=== PATIENT | female | born 1995 | race Caucasian/White ===

== ENCOUNTER → 2019-07-31 10:54 | Outpatient (BNVA) | payer OTHER, SELFPAY | PROVIDERS: PCP Family Medicine; Visit Provider Psychiatry & Neurology Psychiatry | DX: F60.3 Borderline personality disorder (principal); F43.12 Post-traumatic stress disorder, chronic; F33.1 Major depressive disorder, recurrent, moderate; F50.00 Anorexia nervosa, unspecified | CPT/HCPCS: 99204 ==

== ENCOUNTER 2019-10-28 13:17 | Inpatient (IN) | payer SELFPAY ==
[2019-10-28 13:25] VITALS: BP 110/71; PULSE 86; RESP 16; TEMP 36.9; O2SAT 97; BMI 26.1
--- NOTE | 2019-10-28 13:36 | W.ED.PSYCH ---
HPI - Psych General: Chief Complaint: Psychiatric Symptoms Stated Complaint: SI Time Seen by Provider: 10/28/19 13:36 Source: patient Mode of arrival: ambulatory Limitations: no limitations History of Present Illness: HPI Narrative: Patient is a 24-year-old female presents to ED today with complaint of suicidal ideations over the past 2 days. Patient tells me she has purposely avoided going home because she knows that there are knives and pills and alcohol at home that she could use to harm herself or overdose. Patient tells me in 2016 she had a suicide attempt by overdosing on pills. She tells me she has had a lot of stressors including losing her job because of COVID and her fianc? calling off their wedding. Patient is not having homicidal ideations. She does admit to seeing people and occasionally hearing voices. Patient denies drug use. She admits to occasional alcohol use. Her only medication is hydroxyzine at this time. MD complaint: suicidal ideation and feels depressed Duration: constant History of same: Yes Relieving factors: none Context: significant life stressor Associated psychiatric symptoms: depression and suicidal ideation Associated symptoms: Reports auditory hallucinations, visual hallucinations, depression, homicidal ideation and suicidal ideation If self harm: admits thoughts of self harm and has plan Review of Systems Const: Denies: fever(s) or chills Card: Denies: chest pain, palpitations, lightheadedness or syncope Resp: Denies: dyspnea GI: Denies: abdominal pain, nausea, vomiting or diarrhea Skin/Breast: Denies: rash Neuro: Denies: headache(s) Psych: Reports: anxiety, depression, visual hallucinations, auditory hallucinations, suicidal ideation and homicidal ideation [facility] ED PFSH: Social History (Updated 07/31/19 @ 11:15 by Corbin Kidd LPN) Smoking and tobacco status: former smoker Quit status (tobacco): has quit using tobacco Second hand smoke exposure: Yes Smoking risk assessment/counseling performed?: No Female Reproductive History: Date of last menstrual period: 10/21/19 Physical Exam Const: COMMON NORMALS: no acute distress, patient oriented x3, alert and well nourished GENERAL APPEARANCE: cooperative and well kempt Resp: COMMON NORMALS: normal respiratory effort and clear to auscultation bilaterally AUSCULTATION: clear to auscultation bilaterally Cardio: COMMON NORMALS: regular rate and regular rhythm RATE: regular rate RHYTHM: regular rhythm Neuro: COMMON NORMALS: patient oriented x3 SENSORIUM/ORIENTATION: Yes alert Psych: COMMON NORMALS: mental status grossly normal, Normal thought process present, cooperative, speech normal and activity/motor behavior normal APPEARANCE: Yes grossly normal and Yes well kempt ATTITUDE: Yes calm ACTIVITY/MOTOR BEHAVIOR: Yes appropriate eye contact and No psychomotor agitation SPEECH: Yes normal speech MOOD & AFFECT: Yes depressed mood and Yes Flat affect present THOUGHT PROCESS: Normal thought process present THOUGHT CONTENT: Yes Normal thought content present ATTENTION/CONCENTRATION: Yes attention grossly intact and Yes concentration grossly intact MEMORY/COGNITION: Yes memory grossly intact and Yes cognition grossly intact INSIGHT: Good insight present (Psych) JUDGEMENT: Good judgement present (Psych) MDM - Psych Lab Data: Labs: Lab Results 10/28/19 10/28/19 10/28/19 Range/Units 13:50 14:35 14:35 WBC 8.5 (4.0-10.0) 10^3/ uL RBC 4.76 (4.1-5.3) 10^6/u L Hgb 14.1 (11.5-15.3) g/dL Hct 43.0 (37.0-47.0) % MCV 90.3 (81-99) fL MCH 29.6 (28.0-34.0) pg MCHC 32.8 (30.0-36.0) g/dL RDW 12.4 (12.1-15.1) % Plt Count 278 (130-400) 10^3/c mm MPV 11.0 H (7.4-10.4) fL Neut % (Auto) 73.5 % Lymph % (Auto) 17.0 % [place] % (Auto) 6.3 % Eos % (Auto) 2.4 % Baso % (Auto) 0.6 % Neut # (Auto) 6.23 (1.8-7.7) 10^3/u L Lymph # (Auto) 1.4 (0.8-4.8) 10^3/u L [place] # (Auto) 0.5 (0.2-0.9) 10^3/u L Eos # (Auto) 0.2 (0.0-0.8) 10^3/u L Baso # (Auto) 0.1 (0.0-0.1) 10^3/u L Nucleated RBC % (a uto) 0 % Nucleated RBCs # 0.0 /100WBC Sodium 135 L (136-145) mmol/L Potassium 3.9 (3.5-5.1) mmol/L Chloride 103 (98-107) mmol/L Carbon Dioxide 23 (22-29) mmol/L Anion Gap 12.9 (5-19) BUN 9 (6-20) mg/dL Creatinine 0.6 (0.5-0.9) mg/dL GFR Calculation 125.0 (90-130) mL/min Glucose 84 (65-115) mg/dL Calculated Osmolal ity 275 L (285-295) mOsm/k g Calcium 9.2 (8.5-10.5) mg/dL Total Bilirubin 0.3 (0.15-1.2) mg/dL AST 17 (0-32) U/L ALT 11 (0-33) U/L Alkaline Phosphata se 106 H (35-105) IU/L Total Protein 7.5 (6.6-8.7) g/dL Albumin 4.7 (3.5-5.2) g/dL Globulin 2.8 (1.3-4.6) g/dL HCG, Qual (Negative) Salicylates < 0.3 L (3-10) mg/dL Urine Opiates Scre en Negative (Negative) ng/mL Acetaminophen < 5.0 L (10-30) ug/mL Ur Barbiturates Sc reen Negative (Negative) ng/mL Ur Phencyclidine S crn Negative (Negative) ng/mL Ur Amphetamines Sc reen Negative (Negative) ng/mL U Benzodiazepines Scrn Negative (Negative) ng/mL Urine Cocaine Scre en Negative (Negative) ng/mL U Marijuana (THC) Screen Negative (Negative) ng/mL Ethyl Alcohol < 10 (0-10) mg/dL 10/28/19 Range/Units 14:35 WBC (4.0-10.0) 10^3/ uL RBC (4.1-5.3) 10^6/u L Hgb (11.5-15.3) g/dL Hct (37.0-47.0) % MCV (81-99) fL MCH (28.0-34.0) pg MCHC (30.0-36.0) g/dL RDW (12.1-15.1) % Plt Count (130-400) 10^3/c mm MPV (7.4-10.4) fL Neut % (Auto) % Lymph % (Auto) % [place] % (Auto) % Eos % (Auto) % Baso % (Auto) % Neut # (Auto) (1.8-7.7) 10^3/u L Lymph # (Auto) (0.8-4.8) 10^3/u L [place] # (Auto) (0.2-0.9) 10^3/u L Eos # (Auto) (0.0-0.8) 10^3/u L Baso # (Auto) (0.0-0.1) 10^3/u L Nucleated RBC % (a uto) % Nucleated RBCs # /100WBC Sodium (136-145) mmol/L Potassium (3.5-5.1) mmol/L Chloride (98-107) mmol/L Carbon Dioxide (22-29) mmol/L Anion Gap (5-19) BUN (6-20) mg/dL Creatinine (0.5-0.9) mg/dL GFR Calculation (90-130) mL/min Glucose (65-115) mg/dL Calculated Osmolal ity (285-295) mOsm/k g Calcium (8.5-10.5) mg/dL Total Bilirubin (0.15-1.2) mg/dL AST (0-32) U/L ALT (0-33) U/L Alkaline Phosphata se (35-105) IU/L Total Protein (6.6-8.7) g/dL Albumin (3.5-5.2) g/dL Globulin (1.3-4.6) g/dL HCG, Qual Negative (Negative) Salicylates (3-10) mg/dL Urine Opiates Scre en (Negative) ng/mL Acetaminophen (10-30) ug/mL Ur Barbiturates Sc reen (Negative) ng/mL Ur Phencyclidine S crn (Negative) ng/mL Ur Amphetamines Sc reen (Negative) ng/mL U Benzodiazepines Scrn (Negative) ng/mL Urine Cocaine Scre en (Negative) ng/mL U Marijuana (THC) Screen (Negative) ng/mL Ethyl Alcohol (0-10) mg/dL Discharge Plan Discharge Patient Disposition: Admitted As Inpatient Admit Provider: Marshal Wilder Clinical Impression: Suicidal ideation Condition: Stable Referrals: Gomez Keen MD [Primary Care Provider] - Discharge Date/Time: 10/28/19 17:34 Coding Level of Care Code ED Budget Technician for Chg Fwd Exam Expanded Problem Focused
[2019-10-28 14:18] LABS: Amphetamines Screen Urine Negative (Negative); Barbiturates Screen Urine Negative (Negative); Benzodiazepines Screen Urine Negative (Negative); Cocaine Screen Urine Negative (Negative); Opiate Screen Urine Negative (Negative); PCP Screen Urine Negative (Negative); THC Screen Urine Negative (Negative)
[2019-10-28 14:45] LABS: Basophils # 0.1 10^3/uL (0.0-0.1); Basophils % 0.6 %; Eosinophils # 0.2 10^3/uL (0.0-0.8); Eosinophils % 2.4 %; Hemoglobin 14.1 g/dL (11.5-15.3); Lymphocytes # 1.4 10^3/uL (0.8-4.8); Mean Corpuscular HGB Conc 32.8 g/dL (30.0-36.0); Mean Corpuscular Hemoglobin 29.6 pg (28.0-34.0); Mean Corpuscular Volume 90.3 fL (81-99); Monocytes # 0.5 10^3/uL (0.2-0.9); Monocytes % 6.3 %; Neutrophils # 6.23 10^3/uL (1.8-7.7); Neutrophils % 73.5 %; Nucleated Red Blood Cells % 0 %; Platelet Count 278 10^3/cmm (130-400); Red Blood Count 4.76 10^6/uL (4.1-5.3); Red Cell Distribution Width 12.4 % (12.1-15.1); White Blood Count 8.5 10^3/uL (4.0-10.0)
[2019-10-28 15:16] LABS: Alanine Aminotransferase 11 U/L (0-33); Albumin Level 4.7 g/dL (3.5-5.2); Alkaline Phosphatase 106 IU/L (35-105); Anion Gap 12.9 (5-19); Aspartate Amino Transferase 17 U/L (0-32); Blood Urea Nitrogen 9 mg/dL (6-20); Calcium 9.2 mg/dL (8.5-10.5); Carbon Dioxide 23 mmol/L (22-29); Chloride 103 mmol/L (98-107); Globulin 2.8 g/dL (1.3-4.6); Glucose 84 mg/dL (65-115); Osmolality Calculated 275 mOsm/kg (285-295); Potassium 3.9 mmol/L (3.5-5.1); Sodium 135 mmol/L (136-145); Total Bilirubin 0.3 mg/dL (0.15-1.2); Total Protein 7.5 g/dL (6.6-8.7)
[2019-10-28 15:29] LABS: HCG, Serum Qual Negative (Negative)
[2019-10-28 15:34] LABS: Acetaminophen < 5.0 ug/mL (10-30); Alcohol Level < 10 mg/dL (0-10); Salicylate < 0.3 mg/dL (3-10)
[2019-10-28 17:16] VITALS: BP 103/68; PULSE 74; RESP 16; O2SAT 98
[2019-10-28 17:46] VITALS: BP 110/76; PULSE 62; RESP 18; TEMP 37.2; O2SAT 95
[2019-10-28] MEDS: trazodone 50 mg Tablet PO (20:29)
[2019-10-28] MEDS: OLANZapine 5 mg ODT PO (20:30)
[2019-10-28] MEDS: hyDROXYzine 25 mg Capsule 50 MG PO (20:30)
[2019-10-28 20:54] VITALS: BP 98/64; PULSE 72; RESP 14; TEMP 36.7; O2SAT 99
[2019-10-29 06:00] VITALS: BP 99/59; PULSE 75; RESP 15; TEMP 36.6; O2SAT 96
[2019-10-29 14:00] VITALS: BP 107/69; PULSE 75; RESP 20; TEMP 37.1; O2SAT 99
--- NOTE | 2019-10-29 14:44 | P.HP_ITS ---
Providers/Chief Complaint Admitting Physician: Marshal Wilder MD Primary Care Provider: Gomez Keen MD Chief Complaint: SI HPI NPU History of Present Illness Chief complaint: Everything sets me off no matter what I do. History of present illness:Hazel De León is a 24 year old female who was admitted to the psychiatric unit because of intractable anxiety. The patient has her own peculiar use of mental health terms which is not entirely accurate. While she is suffering from anxiety, she also describes a florid symptoms of depression. She feels hopeless and overwhelmed. She is irritable. She has no hedonic capacity and engages in no enjoyable activities. She is pessimistic about the future. She does not enjoy caring for her 1-year-old child and does not appear to be bonding with it. She has passive suicidal ideation on a regular basis but no intent or plan. She has an alleged history of suicide attempts by overdose and walking in front of a truck. However these are not confirmed. She denies auditory hallucinations. She claims to have visual hallucinations but her reality testing remains intact. She says that there are times when she has thoughts that she cannot trust that her reality testing remains good. I do not enjoy anything. She denies any history consistent with maryan. She says that she cannot remember the last time that she was not depressed. There is no substance abuse history and her urine drug screen was negative on admission. Laboratory Tests 10/28/19 10/28/19 13:50 14:35 Urine Opiates Screen Negative Ur Barbiturates Screen Negative Ur Phencyclidine Scrn Negative Ur Amphetamines Screen Negative U Benzodiazepines Scrn Negative Urine Cocaine Screen Negative U Marijuana (THC) Screen Negative Ethyl Alcohol < 10 She is currently taking hydroxyzine. She reports that in the past, this medication has been very helpful in providing her a good night sleep. When she sleeps well at night, during the day, she has better coping skills and better frustration tolerance. However the hydroxyzine is so sedating that she is concerned that she will not wake up if her infant needs her in the middle of the night. She is taking smaller doses with some benefit during the day. She is willing to continue taking this medication. However it does not negate the fact that she is clinically depressed even while taking it. Patient appears to have a vaguely chaotic childhood growing up. She was reluctant to explore those. She did not describe the symptoms of posttraumatic stress disorder on questioning. Mental health history: No history of hospitalizations. She feels as though there are no antidepressants that will help her and that all the ones she has tried have failed. However by her report, she is only tried 3 antidepressants and really has only had one reasonable medication trial. She said there was a medication that made her extremely suicidal . She cannot remember its name. However she did take it for 1 month. She took Paxil and Wellbutrin and had an anaphylactic response within the first week of taking. She was given buspirone and did not like how I felt on it. She could be no more specific. She is cu rrently active in individual therapy at the [facility]. Family psychiatric history is positive for multiple family members who have been treated for mental health problems. Most specifically, her mother has been treated for depression. She has been given almost every medication that is known. Her mother has not tolerated any of them. One time she was on a cocktail of 5 different medications. The patient describes her relationship with her mother as volatile and unsupportive. She says both parents were alcoholics and a number of people in her family were as well. Social history: The patient is somewhat vague about her social history. She is currently living with her 1-year-old and the infant's father. They have been discussing getting . However that appears to be a source of conflict and the future is uncertain. She had been working in a factory prior to childbirth. Since then, she does nothing but take care of this infant. She is socially isolated. Her closest emotional support lives in [place] and she hardly ever gets to see them. She grew up in [place]. She does not talk about her family easily but apparently it was quite chaotic. She has almost no contact with her biological father unless she initiates it. She says that she is actually closer to her father's girlfriend. Her mother has struggled with mental health problems. Please read the family psychiatric history. Though the patient wound up in [place] from [place] primarily due to mother's presence, mother appears to have a significant issues with mental illness and poor judgment. The patient did not describe a history of trauma that would be consistent with posttraumatic stress disorder. Legal history: She denies a history of arrests or conviction. Past medical history: See emergency room notes Review of Systems Narrative: Review of Systems Constitutional: Complains of: Fatigue Eyes: Complains of: No eye symptoms ENT/Mouth: Complains of: No ENTM symptoms Cardiovascular: Complains of: No cardiac symptoms Respiratory: Complains of: No respiratory symptoms GI: Complains of: No GI symptoms Neuro: Complains of: No neuro symptoms Musculoskeletal: Complains of: No musculoskeletal symptoms Skin: Complains of: No skin symptoms Hematologic/Lymphatic: Complains of: No hematologic/lymphatic symptoms Endocrine: Complains of: No endocrine symptoms : Complains of: No symptoms Psych: Complains of: Depression, Suicide ideation Meds NPU Home Medications Medication Instructions Recorded Confirmed Last Taken Type hydroxyzine HCl 25 mg PO BEDTIME PRN 10/28/19 10/28/19 Unknown History levalbuterol tartrate [Xopenex HFA] 2 inh INHALATION Q6H 10/28/19 10/28/19 Unknown History Allergies Allergy/AdvReac Type Severity Reaction Status Date / Time budesonide [From Symbicort] Allergy Severe Can't Verified 07/31/19 11:11 breathe, Asthma attack bupropion [From Wellbutrin] Allergy Severe Anaphylaxis Verified 07/31/19 11:11 formoterol [From Symbicort] Allergy Severe Can't Verified 07/31/19 11:11 breathe, Asthma attack methylphenidate Allergy Severe Light a Verified 07/31/19 11:11 [From Ritalin] hole in stomach paroxetine [From Paxil] Allergy Severe anaphylaxix Verified 07/31/19 11:11 latex Allergy Intermediate Blisters Verified 07/31/19 11:11 PFS NPU PFSH: Social History (Updated 07/31/19 @ 11:15 by Corbin Kidd LPN) Smoking and tobacco status: former smoker Quit status (tobacco): has quit using tobacco Second hand smoke exposure: Yes Smoking risk assessment/counseling performed?: No Mental Status Exam MSE Comments: Mental Status Exam: The patient is encountered to sleep in the afternoon in her bed. She is easily aroused by verbal stimuli. Eye contact is good. She speaks in a very soft voice which is frequently difficult under stand. She is believed to be a reliable informant as information provided is consistent with that in her chart and internally consistent. Appearance: hygiene is fair; no gross neurological deficits., gait is unremarkable; AIMS=0 Speech: Speech is of normal rate and rhythm and easily understood. Thought processes: Thought processes are abstract. Judgment is adequate for safety. Associations: intact Psychotic processes: There is no indication of guarding or paranoia. There is no attention to the internal stimuli. Auditory and visual hallucinations are denied. Judgment: Insight is fair. Problem solving skills are adequate for safety. Orientation: The patient is oriented to person, place time and situation. Memory: no deficits noted in immediate, intermediate, or remote spheres. Attention: The patient is alert and interpersonally engaged. Language: Verbalizations are coherent. Fund of knowledge: Fund of knowledge is adequate. Affect/Mood: Affect is consistent with a depressed mood. pt denies suicidal ideation Affective range flat Psychosis: perception unimpaired except through cognitive distortion; reality testing intact. Vitals/I&O/Wt Last Vital Signs Temp 97.8 F 10/29/19 06:00 Pulse 75 10/29/19 06:00 Resp 15 10/29/19 06:00 BP 99/59 10/29/19 06:00 Pulse Ox 96 10/29/19 06:00 Weight last 48 hrs Weight 71.214 kg Data NPU : 10/28/19 14:35 10/28/19 14:35 A&P Additional A&P Information Diagnoses: Major depression?single episode, severe, without psychotic features Assessment: Hazel meets criteria for clinical depression. She was educated with regard to the signs and symptoms of clinical depression and target symptoms that could be expected to improve with effective medication treatment. She was educated also with regard to aspects of her mental health which would not improve with medication alone. She was strongly advised to continue par ticipating in individual psychotherapy as there appears to be an element of necessity to assume the patient role to support her self-esteem. Treatment plan: Due to the psychiatric conditions and treatment listed in the Assessment and Plan - the patient requires continued hospitalization. Will provide a safe and therapeutic environment for patient.. Will continue inpatient treatment to allow for medication adjustment and monitoring. Will continue q15 min safety checks. Patient will be admitted to the adult psychiatric unit and entered into the full array of individual and group therapies as part of that unit protocol. They will be provided 24-hour access to trained psychiatric nursing care and monitoring. Potential benefits and side effects of medications were discussed as well as the time course of expected response to medication changes. Hazel meets criteria for clinical depression. She was educated with regard to the signs and symptoms of clinical depression and target symptoms that could be expected to improve with effective medication treatment. She was educated also with regard to aspects of her mental health which would not improve with medication alone. She was strongly advised to continue participating in individual psychotherapy as there appears to be an element of necessity to assume the patient role to support her self-esteem. Plan: We will initiate L exapro at 5 mg daily. She was extremely sedated today because for some reason she was given hydroxyzine, trazodone, and Zyprexa all at bedtime. Trazodone would be a good adjunct of medication for sleep if it provides benefit without being too sedating. The as needed hydroxyzine dose was reduced to 10 mg from 50 mg as this is her usual as needed anxiety dosage. Zyprexa at bedtime was discontinued. She will continue trazodone 50 mg at bedtime for insomnia. Monitor patient's mood, sleep, appetite, and behavior closely. Encourage patient to participate in individual and group therapeutic sessions on the yang. Estimated length of stay 5 days The expected benefits and potential side effects of patient's psychiatric medications were discussed with the patient. The patient understands and consents to treatment.CRITERIA FOR DISCHARGE: stable on medications and no longer an imminent risk Involuntary Hold Information 96 Hour Hold: 96 Hour Involuntary Admission: No Attestations NPU Medical Necessity Statement*: Patient will remain in hospital another 4-5 nights before assessment of efficacy and tolerability of medication. Coding Level of Care Code Acute Wound Specialist for Lor Scott
[2019-10-29] MEDS: escitalopram 10 mg Tablet 5 MG PO (15:42)
[2019-10-29 20:57] VITALS: BP 104/68; PULSE 81; RESP 17; TEMP 37; O2SAT 96
[2019-10-29] MEDS: trazodone 50 mg Tablet PO (21:52)
[2019-10-30] VITALS (7 sets, daily range): BP systolic 108–121; BP diastolic 70–80; PULSE 75–83; RESP 15–18; TEMP 37.1–37.6; O2SAT 97–98
[2019-10-30] MEDS: escitalopram 10 mg Tablet 5 MG PO (08:21)
--- NOTE | 2019-10-30 13:18 | P.PN_ITS ---
Subjective NPU Subjective: Interval history: Patient had many questions regarding the medication, benefits, and side effects. All questions were appropriate. She reported that she did not sleep well last night but does report that she received medication last night. That is not supported in the chart. Mental Status Exam MSE Comments: Mental Status Exam: Eye contact is good. She speaks in a very soft voice which is frequently difficult under stand. She is believed to be a reliable informant as information provided is consistent with that in her chart and internally consistent. Appearance: hygiene is fair; no gross neurological deficits., gait is unremarkable; AIMS=0 Speech: Speech is of normal rate and rhythm and easily understood. Thought processes: Thought processes are abstract. Judgment is adequate for safety. Associations: intact Psychotic processes: There is no indication of guarding or paranoia. There is no attention to the internal stimuli. Auditory and visual hallucinations are denied. Judgment: Insight is fair. Problem solving skills are adequate for safety. Orientation: The patient is oriented to person, place time and situation. Memory: no deficits noted in immediate, intermediate, or remote spheres. Attention: The patient is alert and interpersonally engaged. Language: Verbalizations are coherent. Fund of knowledge: Fund of knowledge is adequate. Affect/Mood: Affect is consistent with a depressed mood. pt denies suicidal ideation Affective range good Psychosis: perception unimpaired except through cognitive distortion; reality testing intact. Vitals/I&O/Wt Last Vital Signs Temp 98.7 F 10/30/19 06:00 Pulse 76 10/30/19 06:00 Resp 15 10/30/19 06:00 BP 108/73 10/30/19 06:00 Pulse Ox 97 10/30/19 06:00 Weight last 48 hrs Weight 71.214 kg Data NPU : 10/28/19 14:35 10/28/19 14:35 A&P Additional A&P Information Diagnoses: Major depression?single episode, severe, without psychotic features Assessment: Hazel meets criteria for clinical depression. She was educated with regard to the signs and symptoms of clinical depression and target symptoms that could be expected to improve with effective medication treatment. She was educated also with regard to aspects of her mental health which would not improve with medication alone. She was strongly advised to continue participating in individual psychotherapy as there appears to be an element of necessity to assume the patient role to support her self-esteem. Treatment plan: Due to the psychiatric conditions and treatment listed in the Assessment and Plan - the patient requires continued hospitalization. Will provide a safe and therapeutic environment for patient.. Will continue inpatient treatment to allow for medication adjustment and monitoring. Will continue q15 min safety checks. Patient will be admitted to the adult psychiatric unit and entered into the full array of individual and group therapies as part of that unit protocol. They will be provided 24-hour access to trained psychiatric nursing care and monitoring. Potential benefits and side effects of medications were discussed as well as the time course of expected response to medication changes. Hazel meets criteria for clinical depression. She was educated with regard to the signs and symptoms of clinical depression and target symptoms that could be expected to improve with effective medication treatment. She was educated also with regard to aspects of her mental health which would not improve with medication alone. She was strongly advised to continue participating in individual psychotherapy as there appears to be an element of necessity to assume the patient role to support her self-esteem. Plan: We will initiate Lexapro at 5 mg daily. She was extremely sedated today because for some reason she was given hydroxyzine, trazodone, and Zyprexa all at bedtime. Trazodone would be a good adjunct of medication for sleep if it provides benefit without being too sedating. The as needed hydroxyzine dose was reduced to 10 mg from 50 mg as this is her usual as needed anxiety dosage. Zyprexa at bedtime was discontinued. She will continue trazodone 50 mg at bedtime for insomnia. Hospital day #3: Continue Lexapro 5 mg daily. Restart trazodone 50 mg at bedtime for insomnia. Patient was told to arrange a follow-up appointment with her therapist and psychiatrist prior to discharge. She is expecting to be discharged tomorrow. Monitor patient's mood, sleep, appetite, and behavior closely. Encourage patient to participate in individual and group therapeutic sessions on the yang. Estimated length of stay 5 days The expected benefits and potential side effects of patient's psychiatric medications were discussed with the patient. The patient understands and consents to treatment.CRITERIA FOR DISCHARGE: stable on medications and no longer an imminent risk Involuntary Hold Information 96 Hour Hold: 96 Hour Involuntary Admission: No Attestations NPU Medical Necessity Statement*: Patient will remain in the hospital another 2-4 nights for assessment of medication efficacy and tolerability. Coding Level of Care Code Acute Medical Assistant Float for Lor Scott
[2019-10-30] MEDS: trazodone 50 mg Tablet PO (21:10)
[2019-10-31 06:00] VITALS: BP 112/79; PULSE 81; RESP 17; TEMP 36.9; O2SAT 99
[2019-10-31] MEDS: escitalopram 10 mg Tablet 5 MG PO (08:16)
--- NOTE | 2019-10-31 08:47 | PM.NDC ---
Reason for Visit Reason for Visit: SI Brief History: [facility] complaint: Everything sets me off no matter what I do. History of present illness:Hazel De León is a 24 year old female who was admitted to the psychiatric unit because of intractable anxiety. The patient has her own peculiar use of mental health terms which is not entirely accurate. While she is suffering from anxiety, she also describes a florid symptoms of depression. She feels hopeless and overwhelmed. She is irritable. She has no hedonic capacity and engages in no enjoyable activities. She is pessimistic about the future. She does not enjoy caring for her 1-year-old child and does not appear to be bonding with it. She has passive suicidal ideation on a regular basis but no intent or plan. She has an alleged history of suicide attempts by overdose and walking in front of a truck. However these are not confirmed. She denies auditory hallucinations. She claims to have visual hallucinations but her reality testing remains intact. She says that there are times when she has thoughts that she cannot trust that her reality testing remains good. I do not enjoy anything. She denies any history consistent with maryan. She says that she cannot remember the last time that she was not depressed. There is no substance abuse history and her urine drug screen was negative on admission. Laboratory Tests 10/28/19 10/28/19 13:50 14:35 Urine Opiates Screen Negative Ur Barbiturates Screen Negative Ur Phencyclidine Scrn Negative Ur Amphetamines Screen Negative U Benzodiazepines Scrn Negative Urine Cocaine Screen Negative U Marijuana (THC) Screen Negative Ethyl Alcohol < 10 She is currently taking hydroxyzine. She reports that in the past, this medication has been very helpful in providing her a good night sleep. When she sleeps well at night, during the day, she has better coping skills and better frustration tolerance. However the hydroxyzine is so sedating that she is concerned that she will not wake up if her infant needs her in the middle of the night. She is taking smaller doses with some benefit during the day. She is willing to continue taking this medication. However it does not negate the fact that she is clinically depressed even while taking it. Patient appears to have a vaguely chaotic childhood growing up. She was reluctant to explore those. She did not describe the symptoms of posttraumatic stress disorder on questioning. Mental health history: No history of hospitalizations. She feels as though there are no antidepressants that will help her and that all the ones she has tried have failed. However by her report, she is only tried 3 antidepressants and really has only had one reasonable medication trial. She said there was a medication that made her extremely suicidal . She cannot remember its name. However she did take it for 1 month. She took Paxil and Wellbutrin and had an anaphylactic response within the first week of taking. She was given buspirone and did not like how I felt on it. She could be no more specific. She is currently active in individual therapy at the [facility] (formerly [facility]). Family psychiatric history is positive for multiple family members who have been treated for mental health problems. Most specifically, her mother has been treated for depression. She has been given almost every medication that is known. Her mother has not tolerated any of them. One time she was on a cocktail of 5 different medications. The patient describes her relationship with her mother as volatile and unsupportive. She says both parents were alcoholics and a number of people in her family were as well. Social history: The patient is somewhat vague about her social history. She is currently living with her 1-year-old infant and the infant's father. They have been discussing getting . However that appears to be a source of conflict and the future is uncertain. She had been working in a factory prior to childbirth. Since then, she does nothing but take care of this . She is socially isolated. Her closest emotional support lives in [place] and she hardly ever gets to see them. She grew up in [place]. She does not talk about her family easily but apparently it was quite chaotic. She has almost no contact with her biological father unless she initiates it. She says that she is actually closer to her father's girlfriend. Her mother has struggled with mental health problems. Please read the family psychiatric history. Though the patient wound up in [place] from [place] primarily due to mother's presence, mother appears to have a significant issues with mental illness and poor judgment. The patient did not describe a history of trauma that would be consistent with posttraumatic stress disorder. Hospital Course Hospital Course Patient will be admitted to the adult psychiatric unit and entered into the full array of individual and group therapies as part of that unit protocol. They will be provided 24-hour access to trained psychiatric nursing care and monitoring. Potential benefits and side effects of medications were discussed as well as the time course of expected response to medication changes. Hazel meets criteria for clinical depression. She was educated with regard to the signs and symptoms of clinical depression and target symptoms that could be expected to improve with effective medication treatment. She was educated also with regard to aspects of her mental health which would not improve with medication alone. She was strongly advised to continue participating in individual psychotherapy as there appears to be an element of necessity to assume the patient role to support her self-esteem. Plan: We will initiate Lexapro at 5 mg daily. She was extremely sedated today because for some reason she was given hydroxyzine, trazodone, and Zyprexa all at bedtime. Trazodone would be a good adjunct of medication for sleep if it provides benefit without being too sedating. The as needed hydroxyzine dose was reduced to 10 mg from 50 mg as this is her usual as needed anxiety dosage. Zyprexa at bedtime was discontinued. She will continue trazodone 50 mg at bedtime for insomnia. Hospital day #3: Continue Lexapro 5 mg daily. Restart trazodone 50 mg at bedtime for insomnia. Patient was told to arrange a follow-up appointment with her therapist and psychiatrist prior to discharge. She is expecting to be discharged tomorrow. Hospital day #4: Patient complained of having nightmares the night before after initiating trazodone. Much discussion went into exactly the nature of the problem as it was unclear whether this was insomnia or some sort of sleep disturbance. The plan below was eventually agreed upon. Imipramine was initiated 25 mg as needed as needed and insomnia. Involuntary Hold Information 96 Hour Hold: 96 Hour Involuntary Admission: No Mental Status Exam MSE Comments: Mental Status Exam: The patient is encountered to sleep in the afternoon in her bed. She is easily aroused by verbal stimuli. Eye contact is good. She speaks in a very soft voice which is frequently difficult under stand. She is believed to be a reliable informant as information provided is consistent with that in her chart and internally consistent. Appearance: hygiene is fair; no gross neurological deficits., gait is unremarkable; AIMS=0 Speech: Speech is of normal rate and rhythm and easily understood. Thought processes: Thought processes are abstract. Judgment is adequate for safety. Associations: intact Psychotic processes: There is no indication of guarding or paranoia. There is no attention to the internal stimuli. Auditory and visual hallucinations are denied. Judgment: Insight is fair. Problem solving skills are adequate for safety. Orientation: The patient is oriented to person, place time and situation. Memory: no deficits noted in immediate, intermediate, or remote spheres. Attention: The patient is alert and interpersonally engaged. Language: Verbalizations are coherent. Fund of knowledge: Fund of knowledge is adequate. Affect/Mood: Affect is consistent with a euthymic mood. pt denies suicidal ideation Affective range fair Psychosis: perception unimpaired except through cognitive distortion; reality testing intact. Discharge Data Vitals: Last Vital Signs Temp 98.4 F 10/31/19 06:00 Pulse 81 10/31/19 06:00 Resp 17 10/31/19 06:00 BP 112/79 10/31/19 06:00 Pulse Ox 99 10/31/19 06:00 Discharge Plan Discharge Patient Disposition: Home Condition: Stable Prescriptions: New imipramine HCl 25 mg Tablet 25 mg PO BEDTIME PRN (Reason: insomnia) Qty: 30 RF: 3 escitalopram oxalate 10 mg Tablet 5 mg PO DAILY Qty: 15 RF: 5 Continued levalbuterol tartrate [Xopenex HFA] 45 mcg/actuation Hfa Aerosol Inhaler 2 inh INHALATION Q6H RF: 0 Discontinued hydroxyzine HCl 25 mg tablet 25 mg PO BEDTIME PRN (Reason: sleep/anxiety) RF: 0 Discharge Orders: Discharge Order (Routine); Ordered 10/31/19 Ordered By: Marshal Wilder Referrals: Gomez Keen MD [Primary Care Provider] - Joan Coronel MS, PLP [Therapist] - 11/03/19 8:00 am Jm Clemens MD [Physician] - 11/17/19 10:30 am Discharge Attestations NPU Time Spent in Discharge Care*: greater than 30 min Coding Level of Care Code Acute Roller Painter for Lor Scott
[2019-10-31 09:06] VITALS: BP 112/79; PULSE 81; RESP 17; TEMP 36.9; O2SAT 99
== END 2019-10-31 11:57 | disposition home or self-care (01) | DRG 880 ==
LOC: ER 16:01 → NP 17:18
PROVIDERS: Physician Assistant; Admitting Provider Psychiatry & Neurology Psychiatry; PCP Family Medicine; Visit Provider Psychiatry & Neurology Psychiatry
DX: F41.9 Anxiety disorder, unspecified (principal); R45.851 Suicidal ideations; F32.9 Major depressive disorder, single episode, unspecified; Z91.5 Personal history of self-harm; Z87.891 Personal history of nicotine dependence
CPT/HCPCS: 12345; 36415; 80053; 80306; 80307; 84703; 85025; 94640; 99284

== ENCOUNTER 2020-01-07 15:07 | Inpatient (IN) | payer SELFPAY ==
[2020-01-07 15:36] VITALS: BP 127/85; PULSE 95; RESP 16; TEMP 36.8; O2SAT 99; BMI 26.8
--- NOTE | 2020-01-07 15:54 | ED_ITS ---
HPI - Psych General: Chief Complaint: Psychiatric Symptoms Stated Complaint: mhe Time Seen by Provider: 01/07/20 15:46 History of Present Illness: HPI Narrative: 24-year-old female presents emergency room complaining of suicidal ideation and planning she intends to cut herself she had thought to cut her wrist to kill herself. She has already cut her the anterior part of her right thigh earlier today she still has thin cloth stretch pants but there is no active bleeding coming through the clothing. She is unsure of her last tetanus shot. In October of this year she was hospitalized for suicidal ideation. MD complaint: suicidal ideation Onset (ago): hour(s) Duration: constant History of same: Yes Relieving factors: none Exacerbating factors: none Associated psychiatric symptoms: depression and suicidal ideation Associated symptoms: Reports depression and suicidal ideation; Deny auditory hallucinations, visual hallucinations, delusions, homicidal ideation or racing thoughts Treatments prior to arrival: none If self harm: admits thoughts of self harm, has plan and has acted on plan Details of plan: Plans to cut herself with a knife particularly her wrist she has already cut her right anterior thigh Review of Systems Const: Denies: fever(s), chills, body aches, change in appetite, fatigue or malaise ENMT: Denies: throat pain, ear or mastoid pain, nasal discharge or nasal congestion Card: Denies: chest pain, edema, dyspnea on exertion or orthopnea Resp: Denies: dyspnea, productive cough or non-productive cough GI: Denies: abdominal pain, nausea, vomiting, hematemesis, coffee ground emesis, diarrhea, constipation, bloating, hematochezia or melena : Denies: flank pain, difficulty voiding, dysuria, urinary frequency or urinary urgency Skin/Breast: Denies: rash or pruritus Psych: Reports: depression and suicidal ideation; Denies: visual hallucinations, auditory hallucinations or homicidal ideation [facility] PFSH: Medical History (Updated 01/09/20 @ 12:47 by Ritchie Frazier DO) Anorexia nervosa in remission Borderline personality disorder Major depressive disorder, recurrent, moderate Post-traumatic stress disorder, chronic Social History Smoking and tobacco status: former smoker Quit status (tobacco): has quit using tobacco Second hand smoke exposure: Yes Smoking risk assessment/counseling performed?: No Female Reproductive History: Date of last menstrual period: 01/07/20 Physical Exam Const: COMMON NORMALS: no acute distress GENERAL APPEARANCE: cooperative and comfortable ORIENTATION/CONSCIOUSNESS: Yes awake, Yes oriented to person, Yes oriented to place and Yes oriented to time Eye: COMMON NORMALS: Equal, round and reactive pupils present, EOMs intact bilaterally, conjunctivae normal and no scleral icterus CONJUNCTIVA: Yes conjunctivae normal PUPIL: Yes Equal, round and reactive pupils present Neck/C-Spine: COMMON NORMALS: no JVD Resp: COMMON NORMALS: normal respiratory effort, No retractions, No use of accessory muscles and clear to auscultation bilaterally AUSCULTATION: clear to auscultation bilaterally Cardio: COMMON NORMALS: no JVD, regular rate, regular rhythm and No murmurs present (Cardio) RATE: regular rate RHYTHM: regular rhythm GI: COMMON NORMALS: Soft to palpation and No hepatosplenomegaly present AUSCULTATION: Yes normoactive bowel sounds PALPATION: Yes Soft to palpation, No Tenderness to palpation present (GI), No Guarding due to palpation present (GI) and Yes No hepatosplenomegaly present Extremity: COMMON NORMALS: normal to inspection, capillary refill normal, no clubbing, cyanosis or edema, no calf tenderness and no pedal edema Neuro: SENSORIUM/ORIENTATION: Yes oriented to person, Yes oriented to place and Yes oriented to time Psych: THOUGHT CONTENT: No delusions Skin: COMMON NORMALS: no rashes or lesions noted GENERAL SKIN EXAM: no rashes or lesions noted MDM - Psych Lab Data: Labs: Lab Results 01/07/20 01/07/20 01/07/20 Range/Units 16:14 16:14 16:53 WBC 8.6 (4.0-10.0) 10^3/ uL RBC 4.83 (4.1-5.3) 10^6/u L Hgb 14.5 (11.5-15.3) g/dL Hct 44.1 (37.0-47.0) % MCV 91.3 (81-99) fL MCH 30.0 (28.0-34.0) pg MCHC 32.9 (30.0-36.0) g/dL RDW 12.7 (12.1-15.1) % Plt Count 280 (130-400) 10^3/c mm MPV 11.1 H (7.4-10.4) fL Neut % (Auto) 68.9 % Lymph % (Auto) 20.2 % [place] % (Auto) 6.7 % Eos % (Auto) 3.6 % Baso % (Auto) 0.5 % Neut # (Auto) 5.94 (1.8-7.7) 10^3/u L Lymph # (Auto) 1.7 (0.8-4.8) 10^3/u L [place] # (Auto) 0.6 (0.2-0.9) 10^3/u L Eos # (Auto) 0.3 (0.0-0.8) 10^3/u L Baso # (Auto) 0.0 (0.0-0.1) 10^3/u L Nucleated RBC % (a uto) 0 % Nucleated RBCs # 0.0 /100WBC Sodium (136-145) mmol/L Potassium (3.5-5.1) mmol/L Chloride (98-107) mmol/L Carbon Dioxide (22-29) mmol/L Anion Gap (5-19) BUN (6-20) mg/dL Creatinine (0.5-0.9) mg/dL GFR Calculation (90-130) mL/min Glucose (65-115) mg/dL Calculated Osmolal ity (285-295) mOsm/k g Calcium (8.5-10.5) mg/dL Total Bilirubin (0.15-1.2) mg/dL AST (0-32) U/L ALT (0-33) U/L Alkaline Phosphata se (35-105) IU/L Total Protein (6.6-8.7) g/dL Albumin (3.5-5.2) g/dL Globulin (1.3-4.6) g/dL Urine Color Yellow (Yellow) Urine Appearance Hazy A (CLEAR) Urine pH 6 (5-7) Ur Specific Gravit y 1.015 (1.005-1.030) Urine Protein Neg (Negative) Urine Glucose (UA) Norm (Normal) Urine Ketones Negative (Negative) Urine Blood 3+ H (Negative) Urine Nitrate Negative (Negative) Urine Bilirubin Neg (Negative) Urine Urobilinogen Norm (Negative) mg/dL Ur Leukocyte [place] Negative (Negative) Urine RBC >100 H (0-2) /hpf Urine WBC None (0-5) /hpf Ur Squamous Epith Cells 0-4 H (0-5) /hpf Amorphous Sediment Not Reportable Urine Bacteria Trace (NONE) /hpf Salicylates (3-10) mg/dL Urine Opiates Scre en Negative (Negative) ng/mL Acetaminophen (10-30) ug/mL Ur Barbiturates Sc reen Negative (Negative) ng/mL Ur Phencyclidine S crn Negative (Negative) ng/mL Ur Amphetamines Sc reen Negative (Negative) ng/mL U Benzodiazepines Scrn Negative (Negative) ng/mL Urine Cocaine Scre en Negative (Negative) ng/mL U Marijuana (THC) Screen Negative (Negative) ng/mL Ethyl Alcohol (0-10) mg/dL 10/15/20 Range/Units 16:53 WBC (4.0-10.0) 10^3/ uL RBC (4.1-5.3) 10^6/u L Hgb (11.5-15.3) g/dL Hct (37.0-47.0) % MCV (81-99) fL MCH (28.0-34.0) pg MCHC (30.0-36.0) g/dL RDW (12.1-15.1) % Plt Count (130-400) 10^3/c mm MPV (7.4-10.4) fL Neut % (Auto) % Lymph % (Auto) % [place] % (Auto) % Eos % (Auto) % Baso % (Auto) % Neut # (Auto) (1.8-7.7) 10^3/u L Lymph # (Auto) (0.8-4.8) 10^3/u L [place] # (Auto) (0.2-0.9) 10^3/u L Eos # (Auto) (0.0-0.8) 10^3/u L Baso # (Auto) (0.0-0.1) 10^3/u L Nucleated RBC % (a uto) % Nucleated RBCs # /100WBC Sodium 140 (136-145) mmol/L Potassium 3.9 (3.5-5.1) mmol/L Chloride 106 (98-107) mmol/L Carbon Dioxide 23 (22-29) mmol/L Anion Gap 14.9 (5-19) BUN 9 (6-20) mg/dL Creatinine 0.6 (0.5-0.9) mg/dL GFR Calculation 125.0 (90-130) mL/min Glucose 105 (65-115) mg/dL Calculated Osmolal ity 289 (285-295) mOsm/k g Calcium 9.7 (8.5-10.5) mg/dL Total Bilirubin 0.2 (0.15-1.2) mg/dL AST 22 (0-32) U/L ALT 20 (0-33) U/L Alkaline Phosphata se 123 H (35-105) IU/L Total Protein 7.6 (6.6-8.7) g/dL Albumin 4.6 (3.5-5.2) g/dL Globulin 3.0 (1.3-4.6) g/dL Urine Color (Yellow) Urine Appearance (CLEAR) Urine pH (5-7) Ur Specific Gravit y (1.005-1.030) Urine Protein (Negative) Urine Glucose (UA) (Normal) Urine Ketones (Negative) Urine Blood (Negative) Urine Nitrate (Negative) Urine Bilirubin (Negative) Urine Urobilinogen (Negative) mg/dL Ur Leukocyte [place] a[place] (Negative) Urine RBC (0-2) /hpf Urine WBC (0-5) /hpf Ur Squamous Epith Cells (0-5) /hpf Amorphous Sediment Urine Bacteria (NONE) /hpf Salicylates < 0.3 L (3-10) mg/dL Urine Opiates Scre en (Negative) ng/mL Acetaminophen < 5.0 L (10-30) ug/mL Ur Barbiturates Sc reen (Negative) ng/mL Ur Phencyclidine S crn (Negative) ng/mL Ur Amphetamines Sc reen (Negative) ng/mL U Benzodiazepines Scrn (Negative) ng/mL Urine Cocaine Scre en (Negative) ng/mL U Marijuana (THC) Screen (Negative) ng/mL Ethyl Alcohol < 10 (0-10) mg/dL Discharge Plan Discharge Patient Disposition: Admitted As Inpatient Admit Provider: Jose Hampton Clinical Impression: Suicidal ideation, Major depressive disorder, recurrent, moderate, Borderline personality disorder Condition: Stable Interventions: ED Discharge Assessment Last Done: 01/07/20 18:41 ED Charges Last Done: 01/07/20 18:41 Discharge Date/Time: 01/07/20 18:47 Coding Level of Care Code ED [place] Tower Loader for Chg Fwd Exam Comprehensive
[2020-01-07 16:47] LABS: Amphetamines Screen Urine Negative (Negative); Barbiturates Screen Urine Negative (Negative); Benzodiazepines Screen Urine Negative (Negative); Cocaine Screen Urine Negative (Negative); Opiate Screen Urine Negative (Negative); PCP Screen Urine Negative (Negative); THC Screen Urine Negative (Negative)
[2020-01-07 17:10] LABS: Basophils % 0.5 %; Eosinophils # 0.3 10^3/uL (0.0-0.8); Eosinophils % 3.6 %; Hematocrit 44.1 % (37.0-47.0); Hemoglobin 14.5 g/dL (11.5-15.3); Lymphocytes # 1.7 10^3/uL (0.8-4.8); Lymphocytes % 20.2 %; Mean Corpuscular HGB Conc 32.9 g/dL (30.0-36.0); Mean Corpuscular Volume 91.3 fL (81-99); Mean Platelet Volume 11.1 fL (7.4-10.4); Monocytes # 0.6 10^3/uL (0.2-0.9); Monocytes % 6.7 %; Neutrophils # 5.94 10^3/uL (1.8-7.7); Neutrophils % 68.9 %; Nucleated Red Blood Cells % 0 %; Platelet Count 280 10^3/cmm (130-400); Red Blood Count 4.83 10^6/uL (4.1-5.3); Red Cell Distribution Width 12.7 % (12.1-15.1); White Blood Count 8.6 10^3/uL (4.0-10.0)
[2020-01-07 17:31] LABS: Alanine Aminotransferase 20 U/L (0-33); Albumin Level 4.6 g/dL (3.5-5.2); Alkaline Phosphatase 123 IU/L (35-105); Blood Urea Nitrogen 9 mg/dL (6-20); Calcium 9.7 mg/dL (8.5-10.5); Carbon Dioxide 23 mmol/L (22-29); Chloride 106 mmol/L (98-107); Glucose 105 mg/dL (65-115); Osmolality Calculated 289 mOsm/kg (285-295); Sodium 140 mmol/L (136-145); Total Bilirubin 0.2 mg/dL (0.15-1.2); Total Protein 7.6 g/dL (6.6-8.7)
[2020-01-07 17:32] LABS: Acetaminophen < 5.0 ug/mL (10-30); Alcohol Level < 10 mg/dL (0-10); Salicylate < 0.3 mg/dL (3-10)
[2020-01-07 17:33] LABS: Anion Gap 14.9 (5-19); Aspartate Amino Transferase 22 U/L (0-32); Potassium 3.9 mmol/L (3.5-5.1)
[2020-01-07 18:41] VITALS: BP 130/80; PULSE 90; RESP 18; O2SAT 98
[2020-01-07 18:53] VITALS: BP 128/80; PULSE 80; RESP 18; TEMP 36.8; O2SAT 100
[2020-01-07 18:57] VITALS: BP 128/80; PULSE 80; RESP 18; TEMP 36.8; O2SAT 100
[2020-01-07 19:07] LABS: HCG, Serum Qual Negative (Negative)
[2020-01-07 21:25] LABS: Add Urine Microscopic? YES; Bilirubin Urine Neg (Negative); Blood Urine 3+ (Negative); Glucose Urine UA Norm (Normal); Ketones Urine Negative (Negative); Leukocyte Esterase Urine Negative (Negative); Nitrate Urine Negative (Negative); Protein Urine Neg (Negative); Specific Gravity, Urine 1.015 (1.005-1.030); Urine Appearance Hazy (CLEAR); Urine Color Yellow (Yellow); Urobilinogen Urine Norm (Negative); pH Urine 6 (5-7)
[2020-01-07 21:35] LABS: Add Urine Culture? Yes; Bacteria Urine TRACE /hpf; RBC Urine >100 /hpf (0-2); Squamous Epithelial Cell Urine 0-4 /hpf (0-5)
[2020-01-07 22:00] VITALS: BP 120/81; PULSE 79; RESP 16; TEMP 36.5; O2SAT 99
[2020-01-07] MEDS: trazodone 50 mg Tablet PO (22:00)
[2020-01-07] MEDS: hyDROXYzine 25 mg Capsule 50 MG PO (22:00)
[2020-01-07] MEDS: OLANZapine 5 mg ODT PO (22:01)
[2020-01-08 06:00] VITALS: BP 109/70; PULSE 71; RESP 15; TEMP 35.9; O2SAT 97
[2020-01-08 06:30] LABS: Basophils # 0.1 10^3/uL (0.0-0.1); Basophils % 1.2 %; Eosinophils # 0.5 10^3/uL (0.0-0.8); Eosinophils % 8.9 %; Hematocrit 44.9 % (37.0-47.0); Hemoglobin 14.4 g/dL (11.5-15.3); Lymphocytes # 2.2 10^3/uL (0.8-4.8); Lymphocytes % 38.7 %; Mean Corpuscular HGB Conc 32.1 g/dL (30.0-36.0); Mean Corpuscular Hemoglobin 30.8 pg (28.0-34.0); Mean Corpuscular Volume 95.9 fL (81-99); Mean Platelet Volume 10.7 fL (7.4-10.4); Monocytes # 0.5 10^3/uL (0.2-0.9); Monocytes % 9.4 %; Neutrophils # 2.39 10^3/uL (1.8-7.7); Neutrophils % 41.8 %; Nucleated Red Blood Cells % 0 %; Platelet Count 253 10^3/cmm (130-400); Red Blood Count 4.68 10^6/uL (4.1-5.3); Red Cell Distribution Width 12.8 % (12.1-15.1); White Blood Count 5.7 10^3/uL (4.0-10.0)
[2020-01-08 06:52] LABS: Alanine Aminotransferase 19 U/L (0-33); Albumin Level 4.2 g/dL (3.5-5.2); Alkaline Phosphatase 118 IU/L (35-105); Blood Urea Nitrogen 11 mg/dL (6-20); Calcium 9.5 mg/dL (8.5-10.5); Carbon Dioxide 22 mmol/L (22-29); Chloride 105 mmol/L (98-107); Globulin 2.4 g/dL (1.3-4.6); Glomerular Filtration Rate 104.6 mL/min (90-130); Glucose 90 mg/dL (65-115); Osmolality Calculated 289 mOsm/kg (285-295); Sodium 140 mmol/L (136-145); Total Bilirubin 0.2 mg/dL (0.15-1.2); Total Protein 6.6 g/dL (6.6-8.7)
[2020-01-08 06:56] LABS: Anion Gap 17.2 (5-19); Potassium 4.2 mmol/L (3.5-5.1)
[2020-01-08 06:57] LABS: Aspartate Amino Transferase 25 U/L (0-32)
[2020-01-08] MEDS: acyclovir 400 mg Tablet PO ×2 (08:41→16:57)
[2020-01-08] MEDS: nitrofurantoin SR (BID) 100 mg Capsule PO ×2 (08:41→16:57)
[2020-01-08] MEDS: escitalopram 10 mg Tablet PO (08:41)
[2020-01-08 14:00] VITALS: BP 112/74; PULSE 105; RESP 20; TEMP 36.7; O2SAT 100
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
[2020-01-08 21:13] VITALS: BP 105/68; PULSE 82; RESP 16; TEMP 36.6; O2SAT 98
[2020-01-08] MEDS: prazosin 1 mg Capsule 2 MG PO (21:35)
--- NOTE | 2020-01-09 02:14 | PC.NURSE ---
Pt has had a rough time staying asleep tonight. She reports having vivid bad dreams. Called the physician Dr Hampton to get new medication for sleep. She continued her current medication this evening but is scheduled to change to Doxepin 10mg PO at bed tomorrow.
[2020-01-09 06:00] VITALS: BP 120/72; PULSE 94; RESP 17; TEMP 36.5; O2SAT 95
[2020-01-09] MEDS: escitalopram 10 mg Tablet PO ×2 (08:47→10:21)
[2020-01-09] MEDS: acyclovir 400 mg Tablet PO ×2 (08:47→18:15)
[2020-01-09] MEDS: nitrofurantoin SR (BID) 100 mg Capsule PO ×2 (08:47→18:14)
[2020-01-09 14:00] VITALS: BP 124/88; PULSE 89; RESP 18; TEMP 36.8
--- NOTE | 2020-01-09 16:37 | P.PN_ITS ---
Subjective NPU Subjective: Interval history: Hazel reports that she tolerated the increase in the Lexapro. We discussed the possibility of increasing her prazosin as she reported that she did not sleep that great last night. She requested to think about it as see the report of visit in the morning. We discussed the corrective measure for that being to add some additional fluid as well as not jumping up in the morning. We did agree that she would test out the doxepin 1 more night before we make a change. Mental Status Exam MSE Comments: This is a well-nourished, well-developed white female with adequate dress grooming and eye contact. No abnormal movements except for psychomotor retardation. Cooperative with examiner no acute distress. Speech was normal rate, decreased volume. Mood described as depressed, affect congruent. Thought process organized. Thought content: Patient denied any homicidal but endorsed suicidal ideations, there were no delusions reported or noted, she denied any auditory or visual hallucinations. Attention and concentration appeared intact and memory appeared reliable but none were formally tested. She is alert and oriented x3. Insight and judgment appear fair control is limited. Vitals/I&O/Wt Last Vital Signs Temp 97.9 F 01/09/20 21:42 Pulse 78 01/09/20 21:42 Resp 17 01/09/20 21:42 BP 119/76 01/09/20 21:42 Pulse Ox 99 01/09/20 21:42 Data NPU : 01/08/20 06:20 01/08/20 06:20 Micro: Microbiology 01/07/20 16:14 Urine Culture - Preliminary Urine,Clean Catch Microbiology 01/07/20 16:14 Urine,Clean Catch Urine Culture - Preliminary A&P Additional A&P Information (1) Major depressive disorder, recurrent, moderate: (2) Post-traumatic stress disorder, chronic: (3) Borderline personality disorder: This is a 24-year-old Y female with depression, PTSD and cluster B pathology who presents with thoughts of self-injurious behavior as well as suicidal thoughts currently in treatment and open to some medication adjustments. 1. Continue current medication. Except: We will likely increase prazosin to 3 mg p.o. nightly tomorrow. 2. Continue every 15 minute checks today. 3. Encourage individual, group and milieu therapy. Involuntary Hold Information 96 Hour Hold: 96 Hour Involuntary Admission: No Attestations NPU Medical Necessity Statement*: Inpatient hospitalization is medically necessary and the clinically appropriate intervention at this time. We will monitor/initiate medications and make changes as indicated. She will be in the hospital for over 2 midnights. Likely length of stay 1-3 days. Coding Level of Care Code Acute Wire Twisting Machine Operator for Lor Scott
[2020-01-09] MEDS: doxepin 10 mg Capsule PO (21:36)
[2020-01-09 21:42] VITALS: BP 119/76; PULSE 78; RESP 17; TEMP 36.6; O2SAT 99
[2020-01-10 06:00] VITALS: BP 116/78; PULSE 89; RESP 18; TEMP 36.3; O2SAT 98
[2020-01-10] MEDS: diphenhydrAMINE 50 mg Capsule PO (06:23)
--- NOTE | 2020-01-10 06:26 | PC.NURSE ---
DOXEPIN PT RECEIVED FIRST DOSE OF DOXEPIN LAST NIGHT. WHEN SHE WOKE UP THIS MORNING HER TOP LIP WAS SWOLLEN AND PATIENT STATED SHE FELT ITCHY. PER TVORB FROM DR. BELLE STOP MEDICATION AND GIVE BENADRYL 50MG PO. WILL MONITOR FOR MEDICATION EFFECTIVENESS.
[2020-01-10] MEDS: acyclovir 400 mg Tablet PO ×2 (08:23→17:20)
[2020-01-10] MEDS: nitrofurantoin SR (BID) 100 mg Capsule PO ×2 (08:24→17:20)
[2020-01-10] MEDS: escitalopram 10 mg Tablet 20 MG PO (08:24)
[2020-01-10 14:00] VITALS: BP 118/78; PULSE 96; RESP 14; TEMP 36.8; O2SAT 99
--- NOTE | 2020-01-10 14:33 | P.PN_ITS ---
Subjective NPU Subjective: Interval history: Hazel presents today reporting she had a fairly significant allergic response to doxepin last night. Call from the nursing staff reporting swollen lips. She has had allergic responses noted from different agents. She reports that she is feeling better in general and look forward to meeting with the treatment team tomorrow. We discussed the pos sibility of discharge in the next 48 hours. She also reports question of milk production. Mental Status Exam MSE Comments: This is a well-nourished, well-developed white female with adequate dress grooming and eye contact. No abnormal movements except for improving psychomotor retardation. Cooperative with examine in no acute distress. Speech was normal rate and volume. Mood described as a little better, affect congruent. Thought process organized. Thought content: Patient denied any homicidal and less suicidal ideations, there were no delusions reported or noted, she denied any auditory or visual hallucinations. Attention and concentration appeared intact and memory appeared reliable but none were formally tested. She is alert and oriented x3. Insight and judgment appear fair, impulse control is limited. Vitals/I&O/Wt Last Vital Signs Temp 97.9 F 01/10/20 22:00 Pulse 96 01/10/20 22:00 Resp 18 01/10/20 22:00 BP 119/80 01/10/20 22:00 Pulse Ox 96 01/10/20 22:00 Weight last 48 hrs Weight 72.575 kg Data NPU : 01/08/20 06:20 01/08/20 06:20 Micro: Microbiology 01/07/20 16:14 Urine Culture - Final Urine,Clean Catch Microbiology 01/07/20 16:14 Urine,Clean Catch Urine Culture - Final A&P Additional A&P Information (1) Major depressive disorder, recurrent, moderate: (2) Post-traumatic stress disorder, chronic: (3) Borderline personality disorder: This is a 24-year-old Y female with depression, PTSD and cluster B pathology who presents with thoughts of self-injurious behavior as well as suicidal thoughts currently in treatment and open to some medication adjustments. 1. Continue current medication. Except: Officially discontinue the toxin, make the trazodone standing dose and also removed the as needed imipramine 2. Continue every 15 minute checks today. 3. Encourage individual, group and milieu therapy. 4. Check TSH and prolactin level in the morning. Involuntary Hold Information 96 Hour Hold: 96 Hour Involuntary Admission: No Attestations NPU Medical Necessity Statement*: Inpatient hospitalization is medically necessary and the clinically appropriate intervention at this time. We will monitor/initiate medications and make changes as indicated. Likely length of stay 1-2 days. Coding Level of Care Code Acute Inspector Semiconductor Wafer for Lor Scott
[2020-01-10] MEDS: prazosin 1 mg Capsule 3 MG PO (21:28)
[2020-01-10] MEDS: hyDROXYzine 25 mg Capsule 50 MG PO (21:28)
[2020-01-10] MEDS: trazodone 50 mg Tablet PO (21:29)
[2020-01-10 22:00] VITALS: BP 119/80; PULSE 96; RESP 18; TEMP 36.6; O2SAT 96
[2020-01-11 06:00] VITALS: BP 106/60; PULSE 83; RESP 14; TEMP 36.8; O2SAT 97
[2020-01-11] MEDS: acetaminophen 325 mg Tablet 650 MG PO (06:49)
[2020-01-11 07:31] LABS: Prolactin 22.55 ng/mL (4.8-23.3); Thyroid Stimulating Hormone 1.56 uIU/mL (0.27-4.20)
[2020-01-11] MEDS: escitalopram 10 mg Tablet 20 MG PO (08:18)
[2020-01-11] MEDS: acyclovir 400 mg Tablet PO ×2 (08:18→17:23)
[2020-01-11 14:19] VITALS: BP 116/76; PULSE 101; RESP 18; TEMP 37.2; O2SAT 96
--- NOTE | 2020-01-11 16:18 | PM.NPN ---
Subjective NPU Subjective: Interval history: Hazel presents today reporting that she had a really bad night. We are in agreement to avoid Vistaril at night at this point and try to function on the trazodone and prazosin alone. She is feeling less safe for discharge and we agreed to take it a day at a time and see if she has a better night of sleep tonight. Mental Status Exam MSE Comments: This is a well-nourished, well-developed white female with adequate dress grooming and eye contact. No abnormal movements except for improving psychomotor retardation. Cooperative with examine in no acute distress. Speech was normal rate and volume. Mood described as fine now, affect congruent. Thought process organized. Thought content: Patient denied any homicidal and less suicidal ideations, there were no delusions reported or noted, she denied any auditory or visual hallucinations. Attention and concentration appeared intact and memory appeared reliable but none were formally tested. She is alert and oriented x3. Insight and judgment appear fair, impulse control is limited. Vitals/I&O/Wt Last Vital Signs Temp 97.6 F 01/11/20 20:33 Pulse 95 01/11/20 20:33 Resp 18 01/11/20 20:33 BP 116/76 01/11/20 20:33 Pulse Ox 98 01/11/20 20:33 Weight last 48 hrs Weight 72.575 kg Data NPU : 01/08/20 06:20 01/08/20 06:20 A&P Additional A&P Information (1) Major depressive disorder, recurrent, moderate: (2) Post-traumatic stress disorder, chronic: (3) Borderline personality disorder: This is a 24-year-old Y female with depression, PTSD and cluster B pathology who presents with thoughts of self-injurious behavior as well as suicidal thoughts currently in treatment and open to some medication adjustments. 1. Continue current medication. 2. Continue every 15 minute checks today. 3. Encourage individual, group and milieu therapy. 4. Lab work showed normal TSH with high normal prolactin. 5. Judging from her affect during interactions and watching her on the unit when she does not know she is observed this clearly as some relation to her cluster B pathology. Involuntary Hold Information 96 Hour Hold: 96 Hour Involuntary Admission: No Attestations NPU Medical Necessity Statement*: Inpatient hospitalization is medically necessary and the clinically appropriate intervention at this time. We will monitor/initiate medications and make changes as indicated. Likely length of stay 1-2 days. Coding Level of Care Code Acute Real Estate Teacher for Lor Scott
[2020-01-11 20:33] VITALS: BP 116/76; PULSE 95; RESP 18; TEMP 36.4; O2SAT 98
[2020-01-11] MEDS: prazosin 1 mg Capsule 3 MG PO (21:44)
[2020-01-11] MEDS: trazodone 50 mg Tablet PO (21:47)
[2020-01-12 06:00] VITALS: BP 98/53; PULSE 93; RESP 17; TEMP 36.4; O2SAT 98
[2020-01-12] MEDS: escitalopram 10 mg Tablet 20 MG PO (07:57)
[2020-01-12] MEDS: acyclovir 400 mg Tablet PO (07:58)
[2020-01-12 14:00] VITALS: BP 129/80; PULSE 102; RESP 18; TEMP 36.9; O2SAT 96
[2020-01-12 14:37] VITALS: BP 98/53; PULSE 93; RESP 17; TEMP 36.4; O2SAT 98
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
== END 2020-01-12 16:15 | disposition home or self-care (01) | DRG 885 ==
LOC: ER 15:46 → NP 18:25
PROVIDERS: Family Medicine; Admitting Provider Psychiatry & Neurology Psychiatry; Visit Provider Psychiatry & Neurology Psychiatry
DX: F33.1 Major depressive disorder, recurrent, moderate (principal); R45.851 Suicidal ideations; Z62.819 Personal history of unspecified abuse in childhood; Z62.810 Personal history of physical and sexual abuse in childhood; Z91.5 Personal history of self-harm; Z87.891 Personal history of nicotine dependence
CPT/HCPCS: 12345; 36415; 80053; 80306; 80307; 81001; 84146; 84443; 84703; 85025; 87086; 99284; J8499; Q0163

== ENCOUNTER → 2020-03-09 15:50 | Outpatient (BNVA) | payer OTHER, SELFPAY | PROVIDERS: Visit Provider Obstetrics & Gynecology | DX: N83.291 Other ovarian cyst, right side (principal); R10.2 Pelvic and perineal pain; N93.9 Abnormal uterine and vaginal bleeding, unspecified; R32 Unspecified urinary incontinence | CPT/HCPCS: 76830; 87086 ==

== ENCOUNTER → 2020-06-20 08:45 | Outpatient (BNVA) | payer OTHER, SELFPAY | PROVIDERS: PCP Nurse Practitioner Family; Visit Provider Obstetrics & Gynecology | DX: A60.09 Herpesviral infection of other urogenital tract (principal); R87.612 Low grade squamous intraepithelial lesion on cytologic smear of cervix (LGSIL) | CPT/HCPCS: 88175 ==

== ENCOUNTER → 2021-06-01 10:50 | Outpatient (BNVA) | payer OTHER, SELFPAY | PROVIDERS: PCP Nurse Practitioner Family; Visit Provider Obstetrics & Gynecology | DX: O26.90 Pregnancy related conditions, unspecified, unspecified trimester (principal) | CPT/HCPCS: 84702 ==

== ENCOUNTER → 2021-10-23 10:02 | Outpatient (BNVA) | payer OTHER, SELFPAY | PROVIDERS: PCP Nurse Practitioner Family; Visit Provider Obstetrics & Gynecology | DX: N64.89 Other specified disorders of breast (principal) | CPT/HCPCS: 84146; 84439; 84443; 84481 ==

== ENCOUNTER 2021-10-27 07:44 | Outpatient (CLI) | payer OTHER, SELFPAY ==
--- NOTE | 2021-10-27 07:50 | US_ITS ---
WS: [id number] ULTRASOUND BILATERAL BREAST, limited HISTORY: N64.3 - Galactorrhea not associated with childbirth, milky bilateral nipple discharge. 26-ye ar-old female. COMPARISON: None available. TECHNIQUE: 2-D and Doppler. Ultrasound is directed around the areolar and anterior breasts to evaluate the ducts and etiology for nipple discharge. No significant dilated ducts are identified. There is no soft tissue mass or abnor mal vascularity. US/US breast BI limited* [id number] IMPRESSION: BI-RADS: 1-Negative FOLLOW-UP: Age 42 No ultrasound abnormality noted involving the
== END 2021-10-27 07:45 | disposition home or self-care (01) ==
LOC: RAD 07:45
PROVIDERS: PCP Nurse Practitioner Family; Visit Provider Obstetrics & Gynecology
DX: N64.3 Galactorrhea not associated with childbirth (principal)
CPT/HCPCS: 76642

== ENCOUNTER 2022-01-10 16:07 | Inpatient (IN) | payer OTHER, SELFPAY ==
[2022-01-10 16:11] VITALS: BP 133/86; PULSE 99; RESP 13; TEMP 36.8; O2SAT 97; BMI 32.4
--- NOTE | 2022-01-10 16:46 | ED.C_ITS ---
HPI - Psych General: Chief Complaint: Psychiatric Symptoms Stated Complaint: Sent from [facility] Time Seen by Provider: 01/10/22 16:40 History of Present Illness: 26 yo female patient presents to ER with SI. Pt states she has been having these thoughts x 1 month since her break up. Pt sta annalisa they have worsened over the past few days and she is self cutting. Pt has superficial lacerations to left wrist and left neck. Pt states she wants to stop her meds because they arent working. Pt states she has been taking them as prescribed. Pt states she has past SI attempt with cutting in the past. Associated symptoms: Reports depression and suicidal ideation; Deny homicidal ideation Review of Systems Const: Denies: fever(s), chills, body aches, change in appetite, change in weight, fatigue, malaise or diaphoresis Eyes: Denies: change in vision, blurry vision, blind spots, photophobia, eye discomfort, eye discharge, eye redness, floaters or seeing flashes ENMT: Denies: throat pain, uvular edema, enlarged tonsils, odynophagia, hoarseness, mouth pain, swelling of lips/tongue, oral sores, bleeding gums, dental pain, dry mouth, ear or mastoid pain, ear discharge, change in hearing, tinnitus, disequilibrium, nasal discharge, nasal congestion, post nasal drip or sinus pain Card: Denies: chest pain, palpitations, irregular heart rhythm, edema, swelling of feet/ankles, lightheadedness, syncope, pre-syncope, dyspnea on exertion, orthopnea, leg pain with exertion or acrocyanosis Resp: Denies: dyspnea, productive cough, non-productive cough, wheezing, stridor, pain on inspiration, change in phlegm color, hemoptysis or chest congestion GI: Denies: abdominal pain, nausea, vomiting, hematemesis, dysphagia, diarrhea, constipation, GI cramping, change in bowel habits or rectal pain : Denies: flank pain, difficulty voiding, dysuria, urinary frequency, urinary urgency, urinary hesitancy or hematuria Musc: Denies: neck pain, back pain, extremity pain, extremity swelling, joint pain, joint swelling, joint redness, joint warmth or deformity Skin/Breast: Denies: rash, pruritus, erythema, sores, new lesions, changes in skin color or dry skin Neuro: Denies: headache(s), numbness in extremities, weakness in extremities, sensory changes, lack of coordination, difficulty walking, frequent falls, diz ziness, vertigo, confusion, behavioral changes, Slurred speech present, difficulty communicating thoughts or seizure-like activity Psych: Reports: depression and suicidal ideation; Denies: anxiety or homicidal ideation Endo: Denies: polyuria, polydipsia, tired all the time, cold intolerance, excessive sweating, flushing, hot flashes or heat intolerance Keenan/Lymph: Denies: easy bruising, easy bleeding, petechiae, purpura, enlarged lymph nodes or tender lymph nodes All/Imm: Denies: urticaria, throat swelling, tongue swelling, facial swelling, acute wheezing or itchy eyes PFSH ED PFSH: Medical History Asthma Diagnosed as a child and she denies any hospitalizations or intubations for this. Managed with medication by her primary care provider Major depressive disorder, recurrent, moderate Reports has had anxiety and depression since about the age of 10 and has taken Vistaril as needed. She follows up with [facility]. No pertinent past medical history Denies diabetes, asthma, hypertension, seizures, DVT/PE PCP: [facility] Surgical History History of removal of skin mole Done in [place]--on her back; benign History of surgical removal of skin lesion Had a skin lesion removed from her sternum in February 2020 Family History Grandfather Hyperlipidemia maternal Diabetes maternal Hypertension maternal Brother Enlarged heart at Mother Diabetes Thyroid condition Family/Other Diabetes maternal great grandfather Stroke maternal great aunt Denies family history of Colon cancer Heart disease Breast cancer Uterine cancer Female Reproductive History: Date of last menstrual period: 01/07/20 Physical Exam Const: COMMON NORMALS: no acute distress, patient oriented x3, healthy appearing, alert and well nourished GENERAL APPEARANCE: cooperative, comfortable, well kempt and well developed; not ill appearing ORIENTATION/CONSCIOUSNESS: Yes awake, Yes oriented to person, Yes oriented to place and Yes oriented to time HENMT: COMMON NORMALS: normocephalic, atraumatic, hearing grossly normal bilaterally, external ears normal, EAC's normal, TM's normal bilaterally, Normal external nose present, Normal nasal mucous membranes and turbinates present and moist oral mucous membranes HEAD & SCALP: normal to inspection, normocephalic and atraumatic FACE & SINUS: normal facial exam, sinuses nontender and face symmetric NOSE: Normal external nose present, Normal nares present, Normal nasal mucous membranes and turbinates present, No nasal discharge present and Abnormal external nose present EXTERNAL EAR: Yes external ears normal and Yes mastoids normal EXTERNAL AUDITORY CANAL: EAC's normal TYMPANIC MEMBRANE: TM's normal bilaterally MOUTH: Normal oral and palatal mucosa present, lip normal, tongue normal and Normal salivary glands and ducts present THROAT: no uvular edema Eye: COMMON NORMALS: Equal, round and reactive pupils present, EOMs intact bilaterally, conjunctivae normal, no scleral icterus and no papilledema GENERAL EYE: appearance normal, both eyes and all related structures EYELID: eyelids normal CONJUNCTIVA: Yes conjunctivae normal SCLERA: sclerae normal CORNEA: Yes corneas normal PUPIL: Yes Equal, round and reactive pupils present DIRECT OPHTHALMOSCOPY: Yes no papilledema Neck/C-Spine: COMMON NORMALS: full ROM, no lymphadenopathy, supple, no meningeal signs, no JVD and Thyroid normal GENERAL: Yes normal visual inspection and Yes trachea midline THYROID: Thyroid normal CERVICAL SPINE: Yes cervical ROM normal Lymph: LYMPHATIC: no lymphadenopathy noted and no lymphedema noted Chest: COMMONS NORMALS: normal inspection of the chest and normal palpation of entire chest wall Resp: COMMON NORMALS: normal respiratory effort, No retractions, No use of accessory muscles and clear to auscultation bilaterally EFFORT & INSPECTION: Yes able to speak in complete sentences and Yes symmetric chest movement AUSCULTATION: clear to auscultation bilaterally Cardio: COMMON NORMALS: no JVD, regular rate and regular rhythm RATE: regular rate RHYTHM: regular rhythm GI: COMMON NORMALS: Normal to inspection, nondistended, normoactive bowel sounds present, Soft to palpation, non-tender, No hepatosplenomegaly present, no masses and no bruits INSPECTION: Yes normal to inspection AUSCULTATION: Yes normoactive bowel sounds PALPATION: Yes Soft to palpation and Yes No hepatosplenomegaly present PERCUSSION: normal to percussion RECTAL EXAM: deferred : COMMON NORMALS: Yes no CVA tenderness, Yes normal external appearance, Yes normal appearance of the vagina, Yes normal appearance of the cervix, Yes normal bimanual exam, Yes No adnexal tenderness and Yes no masses BLADDER/KIDNEY EXAM: Yes no CVA tenderness BIMANUAL EXAM - VAGINA & UTERUS: Yes normal bimanual exam Back/Pelvis: COMMON NORMALS: no CVA tenderness, thoracic and lumbar spine normal to inspection, no thoracic nor lumbar tenderness and thoraco-lumbar ROM normal THORACIC SPINE/UPPER BACK: Yes normal to inspection LUMBAR SPINE/LOWER BACK: Yes normal to inspection Extremity: COMMON NORMALS: normal to inspection, full ROM and capillary refill normal GENERAL: Yes normal exam except as noted Neuro: COMMON NORMALS: patient oriented x3, CN's II-XII intact bilaterally, moves all extremities, no focal motor deficits, no sensory deficits noted and gait normal SENSORIUM/ORIENTATION: Yes alert, Yes oriented to person, Yes oriented to place and Yes oriented to time MENINGEAL SIGNS: Yes no meningeal signs CRANIAL NERVES: Yes CN normal except as noted SPEECH: speech normal GAIT: Yes Normal gait present SENSORY EXAM: Yes extremities MOTOR EXAM: 5/5 motor strength present throughout Psych: COMMON NORMALS: mental status grossly normal, cooperative, speech normal, activity/motor behavior normal, denies hallucinations and denies homicidal ideation APPEARANCE: Yes grossly normal and Yes well kempt ATTITUDE: Yes calm ACTIVITY/MOTOR BEHAVIOR: Yes appropriate eye contact SPEECH: Yes normal speech ATTENTION/CONCENTRATION: Yes attention grossly intact MEMORY/COGNITION: Yes memory grossly intact Skin: COMMON NORMALS: no rashes or lesions noted, turgor normal, no jaundice, no petechiae and no mottling GENERAL SKIN EXAM: no rashes or lesions noted and turgor normal Course Vital Signs: Vital signs: Vital Signs Temperature 98.2 F 01/10/22 16:11 Pulse Rate 99 01/10/22 16:11 Respiratory Rate 13 01/10/22 16:11 Blood Pressure 133/86 01/10/22 16:11 Pulse Oximetry 97 01/10/22 16:11 Oxygen Delivery Me thod 01/10/22 16:11 [facility] - Psych Medical Decision Making 26 yo female patient presents to ER with SI. Pt states she has been having these thoughts x 1 month since her break up. Pt states they have worsened over the past few days and she is self cutting. Pt has superficial lacerations to left wrist and left neck. Pt states she wants to stop her meds because they arent working. Pt states she has been taking them as prescribed. Pt states she has past SI attempt with cutting in the past. Will order labs and psych protocol. will plan on admission Discharge Plan Discharge Condition: Stable Prescriptions: No Action Xopenex HFA 45 mcg/actuation HFA aerosol inhaler 2 inh INHALATION Q6H PRN Zyrtec 10 mg capsule 10 mg PO DAILY dicyclomine 20 mg tablet 20 mg PO QID escitalopram oxalate [Lexapro] 20 mg tablet 20 mg PO DAILY Qty: 30 2RF acyclovir 800 mg tablet 800 mg PO BID 5 Days Qty: 10 6RF Mirena 20 mcg/24 hours (6 yrs) 52 mg intrauterine device 1 device intrauterine ONCE Qty: 1 0RF Rx Instructions: Patient reported medication Referrals: Salome Ontiveros, [employer] [Primary Care Provider] - Coding Level of Care Code ED Short Haul Driver for [facility]
[2022-01-10 17:38] LABS: Basophils # 0.1 10^3/uL (0.0-0.1); Basophils % 0.7 %; Eosinophils # 0.3 10^3/uL (0.0-0.8); Eosinophils % 2.4 %; Hematocrit 45.3 % (37.0-47.0); Hemoglobin 14.8 g/dL (11.5-15.3); Lymphocytes # 2.1 10^3/uL (0.8-4.8); Mean Corpuscular HGB Conc 32.7 g/dL (30.0-36.0); Mean Corpuscular Hemoglobin 30.3 pg (28.0-34.0); Mean Corpuscular Volume 92.8 fl (81-99); Mean Platelet Volume 10.9 fL (7.4-10.4); Monocytes # 0.6 10^3/uL (0.2-0.9); Monocytes % 5.8 %; Neutrophils # 7.97 10^3/uL (1.8-7.7); Neutrophils % 71.7 %; Nucleated Red Blood Cells % 0 %; Platelet Count 324 10^3/cmm (130-400); Red Blood Count 4.88 10^6/uL (4.1-5.3); Red Cell Distribution Width 13.1 % (12.1-15.1); White Blood Count 11.1 10^3/uL (4.0-10.0)
[2022-01-10 18:01] LABS: Alanine Aminotransferase 20 U/L (0-33); Albumin Level 4.4 g/dL (3.5-5.2); Alkaline Phosphatase 138 U/L (35-105); Anion Gap 15.6 (5-19); Aspartate Amino Transferase 17 U/L (0-32); Blood Urea Nitrogen 7 mg/dL (6-20); Calcium 9.8 mg/dL (8.5-10.5); Carbon Dioxide 22 mmol/L (22-29); Chloride 102 mmol/L (98-107); Globulin 3.6 g/dL (1.3-4.6); Glomerular Filtration Rate 102.8 mL/min (90-130); Glucose 85 mg/dL (65-115); Osmolality Calculated 279 mOsm/kg (285-295); Potassium 3.6 mmol/L (3.5-5.1); Sodium 136 mmol/L (136-145); Total Bilirubin 0.2 mg/dL (0.15-1.2)
[2022-01-10 18:02] LABS: Acetaminophen < 5.0 ug/mL (10-30); Alcohol Level < 10 mg/dL (0-10); Salicylate < 0.3 mg/dL (3-10)
[2022-01-10 18:05] LABS: HCG Qualitative Urine. Negative (Negative); Urine Appearance Hazy (CLEAR); Urine Color Yellow (Yellow); pH Urine 7 (5-7)
[2022-01-10 18:06] LABS: Add Urine Microscopic? YES; Bilirubin Urine Neg (Negative); Blood Urine 3+ (Negative); Glucose Urine UA Norm (Normal); Ketones Urine Negative (Negative); Leukocyte Esterase Urine Negative (Negative); Nitrate Urine Negative (Negative); Protein Urine Neg (Negative); Specific Gravity, Urine 1.015 (1.005-1.030); Urobilinogen Urine Neg (Negative)
[2022-01-10 18:14] LABS: Amphetamines Screen Urine Negative (Negative); Barbiturates Screen Urine Negative (Negative); Benzodiazepines Screen Urine Negative (Negative); Cocaine Screen Urine Negative (Negative); Opiate Screen Urine Negative (Negative); PCP Screen Urine Negative (Negative); THC Screen Urine Positive (Negative)
--- NOTE | 2022-01-10 18:18 | PC.PHAR ---
pts pharmacy [facility] closed - pt unsure of what meds she is taking- does not know names or mg
[2022-01-10 18:46] LABS: Add Urine Culture? No; RBC Urine 50-80 /hpf (0-2); Squamous Epithelial Cell Urine 0-4 /hpf (0-5)
[2022-01-10 21:55] VITALS: BP 132/76; PULSE 77; RESP 18; O2SAT 96
[2022-01-11 06:00] VITALS: BP 120/76; PULSE 73; RESP 16; TEMP 36.7; O2SAT 96
[2022-01-11] MEDS: cetirizine 10 mg Tablet PO (09:21)
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
[2022-01-11 14:00] VITALS: BP 109/68; PULSE 95; RESP 16; TEMP 36.6; O2SAT 99
[2022-01-11 20:06] VITALS: BP 118/72; PULSE 84; RESP 12; TEMP 36.8; O2SAT 97
[2022-01-12 06:00] VITALS: BP 121/69; PULSE 97; RESP 16; TEMP 36.8; O2SAT 96
[2022-01-12] MEDS: escitalopram 10 mg Tablet 20 MG PO (09:02)
[2022-01-12] MEDS: cetirizine 10 mg Tablet PO (09:02)
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
[2022-01-12 14:00] VITALS: BP 102/65; PULSE 71; RESP 18; TEMP 36.9; O2SAT 96
[2022-01-12 14:04] VITALS: BP 121/69; PULSE 97; RESP 16; TEMP 36.8; O2SAT 96
== END 2022-01-12 14:24 | disposition home or self-care (01) | DRG 885 ==
LOC: ER 19:38 → NP 21:13
PROVIDERS: Admitting Provider Psychiatry & Neurology Psychiatry; Emergency Provider Registered Nurse; PCP Nurse Practitioner Family; Visit Provider Psychiatry & Neurology Psychiatry
DX: F33.1 Major depressive disorder, recurrent, moderate (principal); R45.851 Suicidal ideations; J45.909 Unspecified asthma, uncomplicated; F43.12 Post-traumatic stress disorder, chronic; F60.3 Borderline personality disorder; Z79.51 Long term (current) use of inhaled steroids
CPT/HCPCS: 80053; 80306; 80307; 81001; 81025; 85025; 97150; 97165; 99285

== ENCOUNTER 2022-01-22 09:03 | Day surgery (SDC) | payer OTHER, SELFPAY ==
[2022-01-19 07:20] VITALS: BMI 32.5
--- NOTE | 2022-01-22 08:01 | P.HP_ITS ---
Same Day Surgery H&P Indication for Procedure/HPI DATE OF PROCEDURE: January 22, 2022 CHIEF COMPLAINT/INDICATIONFOR SURGICAL PROCEDURE: Postprandial abdominal pain and hematochezia PREOP DIAGNOSIS: Postprandial pain and hematochezia PLANNED PROCEDURE: Operation Date: 01/22/22 10:30 Proposed Procedures p EGD/colonoscopy [id number] K92.1,R10.13(Not Applicable) - Miguel Sam MD s Colonoscopy(Not Applicable) - Miguel Sam MD Medications/Allergies* Home Medications Medication Instructions Recorded Confirmed Type levalbuterol tartrate 45 2 inh inhalation Q6H PRN Shortness 06/20/20 01/19/22 History mcg/actuation aerosol inhaler Of Breath Or Wheezing (Xopenex HFA) cetirizine 10 mg capsule (Zyrtec) 10 mg PO DAILY 10/03/20 01/19/22 History potassium citrate 99 mg capsule 99 mg PO DAILY 01/16/22 01/19/22 History Allergies/Adverse Reactions Allergy/AdvReac Type Severity Reaction Status Date / Time budesonide [From Symbicort] Allergy Severe Can't Verified 01/19/22 07:14 breathe, Asthma attack bupropion [From Wellbutrin] Allergy Severe Anaphylaxis Verified 01/19/22 07:14 doxepin Allergy Severe ALGY-Swell Verified 01/19/22 07:14 Lip/Tongue/Throat formoterol [From Symbicort] Allergy Severe Can't Verified 01/19/22 07:14 breathe, Asthma attack methylphenidate Allergy Severe [place] a Verified 01/19/22 07:14 [From Ritalin] hole in stomach paroxetine [From Paxil] Allergy Severe anaphylaxix Verified 01/19/22 07:14 Latex, Natural Rubber AdvReac medina and Verified 01/19/22 07:14 blisters Pertinent History/Comorbid Conditions* Medical History (Updated 01/18/22 @ 11:10 by Miguel Sam MD) Asthma Diagnosed as a child and she denies any hospitalizations or intubations for this. Managed with medication by her primary care provider Major depressive disorder, recurrent, moderate Reports has had anxiety and depression since about the age of 10 and has taken Vistaril as needed. She follows up with [facility]. No pertinent past medical history Denies diabetes, asthma, hypertension, seizures, DVT/PE PCP: [facility] Surgical History (Updated 04/25/20 @ 05:17 by John Brody MD) History of removal of skin mole Done in [place]--on her back; benign History of surgical removal of skin lesion Had a skin lesion removed from her sternum in February 2020 Family History (Updated 04/11/20 @ 10:47 by Michelle Jo, NATHALY) Diabetes Grandfather maternal Mother Family/Other maternal great grandfather Enlarged heart Brother at Hyperlipidemia Grandfather maternal Hypertension Grandfather maternal Thyroid condition Mother Stroke Family/Other maternal great aunt Denies family history of Colon cancer Heart disease Breast cancer Uterine cancer Social History Smoking and tobacco status: former smoker Quit status (tobacco): has quit using tobacco Year quit tobacco: 2017 Second hand smoke exposure: Yes Smoking risk assessment/counseling performed?: No Alcohol intake: current Alcohol intake frequency: few times a week Alcohol type: hard liquor Desire information about alcohol rehabilitation?: No Counseling given: No Desire information about substance/drug rehabilitation?: No Counseling given: No Pertinent Exam Findings alert, oriented x 3, clear to auscultation bilaterally, regular rate & rhythm, operative site marked and procedure specific exam findings Recommendations Surgery/Procedure today Coding Level of Care Code Acute Workers Compensation Consultant for Lor Scott
[2022-01-22] MEDS: sodium chloride 0.9% 1,000 ML 30 ML IV (10:01)
[2022-01-22 10:02] VITALS: BP 120/70; PULSE 76; RESP 18; TEMP 36.4; O2SAT 98
[2022-01-22 10:04] LABS: OR HCG Qualitative Urine Negative (Negative)
--- NOTE | 2022-01-22 10:27 | P.ANESASSM_ITS ---
Pre-Anesthetic Assessment Height/Weight: Height 1.63 m Weight 86.183 kg Temp Pulse Resp BP Pulse Ox O2 Del Method 97.6 F 76 18 120/70 98 01/22/22 10:02 01/22/22 10:02 01/22/22 10:02 01/22/22 10:02 01/22/22 10:02 01/22/22 10:02 Preop Diagnosis: Post prandial pain and Hematochezia Operation Date: 01/22/22 10:30 Proposed Procedures p EGD/colonoscopy [id number] K92.1,R10.13(Not Applicable) - Miguel Sam MD s Colonoscopy(Not Applicable) - Miguel Sam MD Was Beta Amairani taken within 24 hours: N/A Was Clonidine taken within 24 hours: N/A Last intake: Intake Last Liquid Date 01/21/22 Last Liquid Time 22:30 Last Solid Date 01/20/22 Last Solid Time 19:30 Last Intake: 22:30 Social No alcohol and No tobacco Exam alert, oriented x 3, clear to auscultation bilaterally and regular rate & rhythm Airway Submandibular: within normal limits Cervical ROM: within normal limits Mallampati: Class II Dentition: full Pulmonary Asthma (exercise) CV/HEM None reported None reported Hepatic None reported GI Gastroesophageal Reflux Disease Metabolic None reported Musc/skel None reported Neuropsych Anxiety, Bipolar and Depression Anesthetic Plan ASA status: 2 Anesthesia: MAC Risk of > 500 ml blood loss (7ml/kg in children): No Medications/Allergies Home Medications Medication Instructions Recorded Confirmed Last Taken Type levalbuterol tartrate 45 2 inh inhalation Q6H PRN Shortness 06/20/20 01/22/22 01/21/22 History mcg/actuation aerosol inhaler Of Breath Or Wheezing (Xopenex HFA) cetirizine 10 mg capsule (Zyrtec) 10 mg PO DAILY 10/03/20 01/22/22 01/21/22 History escitalopram oxalate 20 mg tablet 20 mg PO DAILY #30 tabs 01/16/22 01/22/22 01/21/22 Rx (Lexapro) potassium citrate 99 mg capsule 99 mg PO DAILY 01/16/22 01/22/22 01/21/22 History Allergies Allergy/AdvReac Type Severity Reaction Status Date / Time budesonide [From Symbicort] Allergy Severe Can't Verified 01/22/22 09:40 breathe, Asthma attack bupropion [From Wellbutrin] Allergy Severe Anaphylaxis Verified 01/22/22 09:40 doxepin Allergy Severe ALGY-Swell Verified 01/22/22 09:40 Lip/Tongue/Throat formoterol [From Symbicort] Allergy Severe Can't Verified 01/22/22 09:40 breathe, Asthma attack methylphenidate Allergy Severe [place] a Verified 01/22/22 09:40 [From Ritalin] hole in stomach paroxetine [From Paxil] Allergy Severe anaphylaxix Verified 01/22/22 09:40 Latex, Natural Rubber AdvReac medina and Verified 01/22/22 09:40 blisters Current Medications Generic Name Dose Route Start Last Admin Trade Name Freq PRN Reason Stop Dose Admin Sodium Chloride 1,000 mls @ 30 mls/hr 01/22/22 09:30 01/22/22 10:01 Sodium Chloride 0.9% IV 30 mls/hr .Q24H FRANKLIN Administration PFSH Anesthesia Medical History Asthma Diagnosed as a child and she denies any hospitalizations or intubations for this. Managed with medication by her primary care provider Major depressive disorder, recurrent, moderate Reports has had anxiety and depression since about the age of 10 and has taken Vistaril as needed. She follows up with [facility] [place]. No pertinent past medical history Denies diabetes, asthma, hypertension, seizures, DVT/PE PCP: [facility] Surgical History History of removal of skin mole Done in [place]--on her back; benign History of surgical removal of skin lesion Had a skin lesion removed from her sternum in February 2020 Family History Grandfather Hyperlipidemia maternal Diabetes maternal Hypertension maternal Brother Enlarged heart at Mother Diabetes Thyroid condition Family/Other Diabetes maternal great grandfather Stroke maternal great aunt Denies family history of Colon cancer Heart disease Breast cancer Uterine cancer Social History Smoking and tobacco status: former smoker Quit status (tobacco): has quit using tobacco Year quit tobacco: 2017 Second hand smoke exposure: Yes Smoking risk assessment/counseling performed?: No Alcohol intake: current Alcohol intake frequency: few times a week Alcohol type: hard liquor Desire information about alcohol rehabilitation?: No Counseling given: No Desire information about substance/drug rehabilitation?: No Counseling given: No Female Reproductive History Date of last menstrual period: 01/07/20 Data Anesthesia Cardiac Studies: No Data to Display
[2022-01-22 11:10] VITALS: BP 123/75; PULSE 71; RESP 16; TEMP 36.3; O2SAT 97
[2022-01-22 11:20] VITALS: BP 105/65; PULSE 78; RESP 16; O2SAT 96
[2022-01-22 11:30] VITALS: BP 130/81; PULSE 101; RESP 16; O2SAT 96
--- NOTE | 2022-01-22 13:46 | ANE.PACU2 ---
Inpatient post-anesthesia follow up: Airway intact: Yes Vital signs: Temperature 97.4 F Pulse Rate 101 Respiratory Rate 16 Blood Pressure 130/81 Pulse Oximetry 96 Oxygen Delivery Me thod Room Air Oxygen Flow Rate Fraction of Inspir ed Oxygen Hydration adequate: Yes Nausea and vomiting: No Pain level: 1 Mental status: Baseline
== END 2022-01-22 11:46 | disposition home or self-care (01) ==
PROVIDERS: Anesthesiology; PCP Nurse Practitioner Family; Visit Provider Internal Medicine
PROC: 0DJ08ZZ Inspection of Upper Intestinal Tract, Via Natural or Artificial Opening Endoscopic (ICD-10-PCS; CPT 43235; principal; 2022-01-22 10:30)
PROC: 0DJD8ZZ Inspection of Lower Intestinal Tract, Via Natural or Artificial Opening Endoscopic (ICD-10-PCS; CPT 45378; 2022-01-22 10:30)
DX: K92.1 Melena (principal); R10.13 Epigastric pain; K21.9 Gastro-esophageal reflux disease without esophagitis; F17.210 Nicotine dependence, cigarettes, uncomplicated
CPT/HCPCS: 43235; 45378; 81025; 84703; J2704; J3010; J7030

== ENCOUNTER → 2024-06-17 10:42 | Outpatient (BNVA) | payer SELFPAY | PROVIDERS: PCP Nurse Practitioner Family; Visit Provider Nurse Practitioner | DX: F60.3 Borderline personality disorder (principal); F33.1 Major depressive disorder, recurrent, moderate | CPT/HCPCS: 80061; 83036 ==

== ENCOUNTER → 2024-11-04 08:14 | Outpatient (BNVA) | payer OTHER, SELFPAY ==
[2024-06-18 10:45] VITALS: BP 133/83; BMI 26.7
== END ==
PROVIDERS: PCP Nurse Practitioner Family; Visit Provider Nurse Practitioner Women's Health
DX: Z30.433 Encounter for removal and reinsertion of intrauterine contraceptive device (principal)
CPT/HCPCS: 81025